=== PATIENT | female | born 1995 | race Caucasian/White ===

== ENCOUNTER 2018-06-09 16:57 | Emergency (ER) | payer OTHER, MEDICAID ==
[~2018-06-09] VITALS: Ht 172.7 cm; Wt 52.2 kg
[~2018-06-09 16:57] MED LIST: IBUPROFEN 800800 MG PO; ROBAXIN500 MG PO; TRINATE TABLET1 TAB PO
[2018-06-09] MEDS ORDERED: TRAMADOL 50 MG50 MG PO (17:46)
[2018-06-09] MEDS ORDERED: NAPROSYN500 MG PO (17:46)
[2018-06-09] MEDS ORDERED: DOXYCYCLINE MO100 M1 PO (17:46)
[2018-06-09 18:29] VITALS: BP 111/75
== END 2018-06-09 18:30 | disposition home or self-care (01) ==
LOC: M.ERS 16:57
DX: L02.214 Cutaneous abscess of groin (principal); Z87.891 Personal history of nicotine dependence

== ENCOUNTER 2020-11-20 19:55 | Emergency (ER) | payer OTHER, MEDICAID ==
[~2020-11-20] VITALS: Ht 170.2 cm; Wt 55.3 kg
[~2020-11-20 19:55] MED LIST changes: +DOXYCYCLINE MO100 M1 PO; +NAPROSYN500 MG PO; +TRAMADOL 50 MG50 MG PO
[2020-11-20 20:18] LABS: URINE BILIRUBIN 1+ (Negative); URINE BLOOD NEGATIVE (Negative); URINE CLARITY CLOUDY; URINE COLOR YELLOW; URINE GLUCOSE-RANDOM NEGATIVE (Negative); URINE KETONES NEGATIVE (Negative); URINE LEUKOCYTES-REFLEX 2+ (Negative); URINE NITRITE-REFLEX NEGATIVE (Negative); URINE PROTEIN 2+ (Negative); URINE SPECIFIC GRAVITY >= 1.030 (1.005-1.030)
[2020-11-20 20:21] LABS: ICTOTEST (BILI CONFIRMATORY) Negative (Negative)
[2020-11-20 20:30] LABS: SQUAMOUS 0-3 Few /LPF (0-3); URINE RBC >20 Many /HPF (0-2)
[2020-11-20 20:31] LABS: URINE WBC-REFLEX 6-15 Few /HPF (0-5)
[2020-11-20 20:38] LABS: CASTS None Seen /LPF (None Seen); CRYSTALS None Seen /LPF (None Seen); MUCUS None Seen strn/LPF (None Seen)
[2020-11-20 20:39] LABS: BACTERIA-REFLEX None Seen /HPF (None Seen)
[2020-11-20] MEDS ORDERED: CEPHALEXIN500 MG PO (22:55)
[2020-11-20] MEDS ORDERED: PYRIDIUM200 M2 PO (22:55)
[2020-11-20 23:08] VITALS: BP 101/54
== END 2020-11-20 23:09 | disposition home or self-care (01) ==
LOC: M.ERS 19:55
PROVIDERS: Personal Emergency Response Attendant
DX: O23.41 Unspecified infection of urinary tract in pregnancy, first trimester (principal); Z3A.01 Less than 8 weeks gestation of pregnancy; Z87.891 Personal history of nicotine dependence